=== PATIENT | female | born 1970 | race Two or more races ===

== ENCOUNTER → 2024-06-16 | Outpatient (CLI) | payer MEDICAID, SELFPAY ==
--- NOTE | 2024-06-16 13:00 | XR_ITS ---
Examination: CT chest with intravenous contrast 2-D sagittal and coronal reconstructions Exam date and time: June 16, 2024 1352 hours Comparison December 15, 2023 INDICATIONS: History 14 x 12 x 8.5 cm pulmonary mass left lung 03/02/2023, biopsied March 31, 2023 CTDI:vol (mGy) 8.86 DLP: (mGycm) 281 Technique: Multiple axial sections of the thorax have been obtained. Sections have been obtained, 3 mm slice thickness. Mediastinal and lung density settings have been obtained. Intravenous contrast administered, 60 cc Isovue-370. 2-D sagittal, coronal images obtained. Low dose protocols were performed. One or more of the following dose reduction techniques were used; automated exposure control, adjustment of the mA and/or KV according to patient size, use of iterative reconstruction technique. Findings: Intact implants No thoracic aortic aneurysmal dilatation Pulmonary artery segments are not enlarged No paratracheal tracheobronchial or bronchopulmonary adenopathy No pneumonia or pulmonary edema No current pulmonary mass No focal liver or splenic lesions No gallstones No pancreatic or adrenal mass Aorta normal size Moderate osteopenia IMPRESSION: No mediastinal lymphadenopathy No pulmonary mass lesion noted
== END | disposition home or self-care (01) ==
PROVIDERS: PCP Registered Nurse Community Health; Referring Provider Radiology Therapeutic Radiology; Visit Provider Radiology Therapeutic Radiology
DX: R91.8 Other nonspecific abnormal finding of lung field (principal); C34.32 Malignant neoplasm of lower lobe, left bronchus or lung
CPT/HCPCS: 71260; A4649; Q9967

== ENCOUNTER 2024-07-07 09:22 | Outpatient (RCR) | payer MEDICAID, SELFPAY ==
--- NOTE | 2024-07-07 09:59 | CTCFLWUP_ITS ---
[facility] [address] [place], [place] [address] FOLLOW-UP NOTE Date: 07/07/2024 MR#: [id number] Name: EVONNE QUARLES : 1970 Dx: R91.8 Other nonspecific abnormal finding of lung field Identification. 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 17 x 15 x 9.8 cm at [facility] 07/01/2023. General surgeon recommended observation with no adjuvant therapy recommended. CT scan 12/15/2023 no mass seen. Repeat CT scan 1 06/16/2024 no mass seen. Patient states that she has having some cough and shortness of breath type symptoms off and on. Lung sounds clear to be today. Told her to be followed by her primary care physician Marya Fitch. I will see her again in 4 months time and order another CT scan of chest. Electronically signed by: Thomas Goel M.D. 07/07/2024 9:56 AM
== END 2024-07-22 23:59 | disposition home or self-care (01) ==
LOC: SCTC 09:22
PROVIDERS: PCP Registered Nurse Community Health; Referring Provider Radiology Therapeutic Radiology; Visit Provider Radiology Therapeutic Radiology
DX: R91.8 Other nonspecific abnormal finding of lung field (principal); R05.9 Cough, unspecified; R06.02 Shortness of breath
CPT/HCPCS: 99212; G0463

== ENCOUNTER 2024-11-08 09:17 | Outpatient (RCR) | payer MEDICAID, SELFPAY ==
--- NOTE | 2024-11-10 14:17 | CTCFLWUP_ITS ---
[facility] [address] [place], [place] [address] FOLLOW-UP NOTE Date: 11/08/2024 MR#: [id number] Name: EVONNE QUARLES : 1970 Dx: R91.8 Other nonspecific abnormal finding of lung field Identification. 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 Continued observation w rather than any adjuvant therapy was recommended Previous CT 06/16/2024 showed no mediastinal lymphadenopathy no pulmonary mass lesion noted. As I see patient for follow-up today patient states that she is having more discomfort at the left lower lobe surgery site. Lungs are clear today. Shall order CT scan of the chest with contrast and see her back in 2 months. Electronically signed by: Thomas Goel M.D. 11/08/2024 9:49 AM
== END 2024-11-19 23:59 | disposition home or self-care (01) ==
LOC: SCTC 09:17
PROVIDERS: PCP Registered Nurse Community Health; Referring Provider Registered Nurse Community Health; Visit Provider Radiology Therapeutic Radiology
DX: R91.8 Other nonspecific abnormal finding of lung field (principal)
CPT/HCPCS: 99212; G0463

== ENCOUNTER → 2024-11-11 | Outpatient (CLI) | payer MEDICAID, SELFPAY ==
--- NOTE | 2024-11-11 09:44 | XR_ITS ---
Examination: Ultrasound soft tissue left clavicle left axilla TECHNIQUE: Grayscale sonographic images soft tissue left clavicle left axilla Date and time: November 11, 2024 1013 hours INDICATIONS: Palpable lump left clavicle and chest medial to the axilla noticed beginning one year ago FINDINGS: 13 x 6 x 10 mm mass at the area of concern left chest medial to the hand, No clavicular soft tissue mass IMPRESSION: Soft tissue mass at the area concern medial left chest near the axilla, 13 x 6 x [address] chest post intravenous contrast follow-up
== END | disposition home or self-care (01) ==
PROVIDERS: PCP Registered Nurse Community Health; Referring Provider Registered Nurse Community Health; Visit Provider Registered Nurse Community Health
DX: R22.1 Localized swelling, mass and lump, neck (principal); R22.2 Localized swelling, mass and lump, trunk; D16.7 Benign neoplasm of ribs, sternum and clavicle; C34.92 Malignant neoplasm of unspecified part of left bronchus or lung
CPT/HCPCS: 76604

== ENCOUNTER → 2024-12-16 | Outpatient (CLI) | payer MEDICAID, SELFPAY ==
--- NOTE | 2024-12-16 15:00 | XR_ITS ---
Examination: CT chest with intravenous contrast 2-D sagittal and coronal reconstructions Exam date and time: December 16, 2024 1511 hours Comparison June 16, 2024 INDICATIONS: History left chest axillary mass removed 2022 CTDI:vol (mGy) 8.32 DLP: (mGycm) 260 Technique: Multiple axial sections of the thorax have been obtained. Sections have been obtained, 3 mm slice thickness. Mediastinal and lung density settings have been obtained. Intravenous contrast administered, 60 cc Isovue-370. 2-D sagittal, coronal images obtained. Low dose protocols were performed. One or more of the following dose reduction techniques were used; automated exposure control, adjustment of the mA and/or KV according to patient size, use of iterative reconstruction technique. Findings: No thoracic aortic aneurysm dilatation Pulmonary artery segments are not enlarged no pulmonary artery filling defects No current axillary masses No pneumonia or pulmonary edema Old posterior rib fractures Stable probable splenic cyst, 13 mm No gallstones No pancreatic mass IMPRESSION: No mediastinal lymphadenopathy No current axillary masses No pneumonia or pulmonary edema
== END | disposition home or self-care (01) ==
LOC: CCTX 14:34
PROVIDERS: PCP Registered Nurse Community Health; Referring Provider Radiology Therapeutic Radiology; Visit Provider Radiology Therapeutic Radiology
DX: R91.8 Other nonspecific abnormal finding of lung field (principal); C34.32 Malignant neoplasm of lower lobe, left bronchus or lung
CPT/HCPCS: 71260; A4649; Q9967

== ENCOUNTER 2025-01-11 08:24 | Outpatient (RCR) | payer MEDICAID, SELFPAY ==
--- NOTE | 2025-01-11 09:00 | CTCFLWUP_ITS ---
[facility] [address] [place], [place] [address] FOLLOW-UP NOTE Date: 01/11/2025 MR#: [id number] Name: EVONNE QUARLES : 1970 Dx: R91.8 Other nonspecific abnormal finding of lung field Identification. 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 Continued observation rather than any adjuvant therapy was recommended by [facility]. Most recent postop CT 12/16/2024 showed no mediastinal lymphadenopathy no current axial masses no pneumonia or pulmonary edema. Patient appears well lungs were clear. I asked her to return in 4 months. Electronically signed by: Thomas Goel M.D. 01/11/2025 8:58 AM
== END 2025-01-19 23:59 | disposition home or self-care (01) ==
LOC: SCTC 08:24
PROVIDERS: PCP Registered Nurse Community Health; Referring Provider Registered Nurse Community Health; Visit Provider Radiology Therapeutic Radiology
DX: R91.8 Other nonspecific abnormal finding of lung field (principal)
CPT/HCPCS: 99212; G0463

== ENCOUNTER → 2025-02-02 | Outpatient (CLI) | payer MEDICAID, SELFPAY ==
--- NOTE | 2025-02-02 08:30 | XR_ITS ---
Examination: Screening digital mammography, bilateral Computer aided detection 3-D breast Tomosynthesis, bilateral Date and time of exam: February 02, 2025 0819 hours Compared to mammograms dating to January 07, 2013 Indication: Screening Technique: Nonmagnified MLO, CC views of the breasts to been obtained, reconstructed from 3-D Tomosynthesis images. R2 computer aided detection program utilized for evaluation of suspicious masses and/or abnormal calcifications. 3-D Tomosynthesis images obtained. Findings: Scattered areas of fibroglandular density. Breast biopsy marker retroareolar region left breast Benign calcifications. Intact implants. No interval suspicious masses Impression: BI-RADS category II: Benign Findings. Recommend 1 year follow-up mammogram.
== END | disposition home or self-care (01) ==
LOC: CDIM 08:11
PROVIDERS: Referring Provider Registered Nurse Community Health; Visit Provider Registered Nurse Community Health
DX: Z12.31 Encounter for screening mammogram for malignant neoplasm of breast (principal); R92.323 Mammographic fibroglandular density, bilateral breasts; R92.1 Mammographic calcification found on diagnostic imaging of breast
CPT/HCPCS: 77063; 77067

== ENCOUNTER 2025-05-16 07:50 | Outpatient (RCR) | payer MEDICAID, SELFPAY ==
--- NOTE | 2025-05-16 08:48 | CTCFLWUP_ITS ---
[facility] [address] [place], [place] [address] FOLLOW-UP NOTE Date: 05/16/2025 MR#: [id number] Name: EVONNE QUARLES : 1970 Dx: R91.8 Other nonspecific abnormal finding of lung field Identification. 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 Surgery performed by Dr. Edouard Valencia MD Continued observation rather than any adjuvant therapy was recommended. Patient also saw doctors at [facility] in March reportedly unremarkable and recommended continued surveillance. CT scan chest 12/16/2024 no sign of mets or recurrence. Patient recently had benign mole taken from her left shoulder according to patient As I examined her today her lung sounded clear no subcutaneous nodules or adenopathy felt in her axilla or supraclavicular area. Assessment. #1.History of removal of malignant solitary fibrous tumor with negative margins at [facility] 07/01/2023. No adjuvant therapy just surveillance recommended. #2. Order CT of the chest today with contrast. #3. Follow-up in 6 months Cc: [facility] Edouard Valencia MD Electronically signed by: Thomas Goel M.D. 05/16/2025 8:46 AM
== END 2025-05-21 23:59 | disposition home or self-care (01) ==
LOC: SCTC 07:50
PROVIDERS: PCP Registered Nurse Community Health; Referring Provider Registered Nurse Community Health; Visit Provider Radiology Therapeutic Radiology
DX: R91.8 Other nonspecific abnormal finding of lung field (principal)
CPT/HCPCS: 99213; G0463